=== PATIENT | male | born 1985 | race Asian ===

== ENCOUNTER 2017-09-24 18:22 | Emergency (ER) | payer BC, OTHER ==
[2017-09-24 18:45] VITALS: BP 125/81
--- NOTE | 2017-09-24 19:16 | UC ---
Abdominal Pain Male HPI - HPI Summary HPI Summary: 32 y/o male presents to the urgent care c/o left epigastric abdominal pain for the past 3 days. Pt reports on Wednesday night 09/21/2017 he ate a very spicy food at his friends house and then he woke up w/ the pain. Pain is intermittent w/o ay radiation and sometimes stabbing in character that is alleviated w/ movement at times. Pain is 8/10 now. Pt Took an Ibuprofen on to alleviate pain and it made it worse. Pt denies fever, N/V/D, blood in the stool, urinary symptoms, PATEL, URI. Pt is eating well and drinking fluids. - History of Current Complaint Chief Complaint: UCAbdominalPain Stated Complaint: UPPER ABD PAIN Time Seen by Provider: 09/24/17 19:04 Hx Obtained From: Patient Onset/Duration: Gradual Onset, Lasting Days - 3 days, Still Present Timing: Intermittent Episodes Lasting: Severity Initially: Mild Severity Currently: Moderate Pain Intensity: 8 Pain Scale Used: 0-10 Numeric Location: Epigastric - left epigastric Radiates: No Character: Burning, Tearing Aggravating Factor(s): Food - spicy food, Other - Ibuprofen Alleviating Factor(s): Position Associated Signs And Symptoms: Positive: Negative. Negative: Diaphoresis, Fever , Cough, Chest Pain, Constipation, Blood in Stool, Urinary Symptoms, Decreased Appetite, Vomiting, Diarrhea - Allergies/Home Medications Allergies/Adverse Reactions: Allergies Allergy/AdvReac Type Severity Reaction Status Date / Time No Known Allergies Allergy Verified 09/24/17 18:37 PMH/Surg Hx/FS Hx/Imm Hx Previously Healthy: Yes - Pt denies PMHX - Surgical History Surgical History: None Surgery Procedure, Year, and Place: none - Family History Known Family History: Positive: None - Pt denies FMHX - Social History Occupation: Employed Full-time Lives: With Family Alcohol Use: None Substance Use Type: None Smoking Status (MU): Former Smoker Type: Cigarettes Amount Used/How Often: 7 a day Length of Time of Smoking/Using Tobacco: 12 years Have You Smoked in the Last Year: Yes When Did the Patient Quit Smoking/Using Tobacco: 3 months ago - Immunization History Most Recent Influenza Vaccination: never Most Recent Tetanus Shot: never Most Recent Pneumonia Vaccination: never Review of Systems Constitutional: Negative Skin: Negative Eyes: Negative ENT: Negative Respiratory: Negative Cardiovascular: Negative Gastrointestinal: Abdominal Pain - left epigastric abdominal pain Genitourinary: Negative Motor: Negative Neurovascular: Negative Musculoskeletal: Negative Neurological: Negative Psychological: Negative Is Patient Immunocompromised?: No All Other Systems Reviewed And Are Negative: Yes Physical Exam - Summary Physical Exam Summary: Vital Signs Reviewed: Yes General:Patient is a well developed and nourished male who is sitting comfortable in the examining table. Patient is not in any acute respiratory distress. Eyes: Positive: Conjunctiva Clear - PERRLA, EOMI, fundi grossly normal ENT: Positive: Normal ENT inspection, Hearing grossly normal, Pharynx normal, TMs normal Neck: Positive: Supple, Nontender, No Lymphadenopathy Respiratory: Positive: Chest non-tender, Lungs clear, Normal breath sounds, No respiratory distress Cardiovascular: Positive: RRR,S1 and S2 present, No Murmur, Pulses Normal, Brisk Capillary Refill Abdomen Description: flat with no distention. No surface trauma, scars, incisions. hyperactive bowel sounds present in all four quadrants. point tenderness on deep palaption in the left side of epigastric area. No guarding, or rigidity to palpation. No masses palpated, No organomegaly. Negative Dimas s signs. No periumbilical tenderness. No rebound in the lower quadrants. NT over McBurneys point. Good femoral pulses bilaterally. No hernia noted. No CVAT bilaterally Musculoskeletal: Positive: Strength Intact, ROM Intact, No Edema,FROM in all major joints, no edema, no cyanosis or clubbing. Neuro: Alert and oriented x 3. No acute neurological deficits. Speech is normal. Psychological: WNL Skin: Dry and warm Triage Information Reviewed: Yes Vital Signs: Initial Vital Signs Temp 98 F 09/24/17 18:39 Pulse 92 09/24/17 18:39 Resp 18 09/24/17 18:39 BP 125/81 09/24/17 18:39 Pulse Ox 99 09/24/17 18:39 Abd Pain Male Course/Dx - Course Course Of Treatment: 32 y/o male presents to the urgent care c/o left epigastric abdominal pain for the past 3 days. Pt reports on Wednesday night 2017 he ate a very spicy food at his friends house and then he woke up w/ the pain. Pain is intermittent w/o ay radiation and sometimes stabbing in character that is alleviated w/ movement at times. Pain is 8/10 now. Pt Took an Ibuprofen on to alleviate pain and it made it worse. Pt denies fever, N/V/D, blood in the stool, urinary symptoms, PATEL, URI. Hx obtained. Pt w/ Point tenderness in epigastric area, normal bowel sounds presents in all four quadrants, no distension or guarding on examination. Pt probably w/ gastritis. Pt given Maalox PO at the clinic to alleviate symptoms. Pt observed for 20 min and then he felt better. Pt's Symptoms discussed w/ DR Lozano. She recommended a PPI and f/u w/ PCP for further management. Pt Rx Omeprazole PO and advised to continue w/ Maalox.Avoid NSAIDs and Rx Tylenol PO for pain. Educated on dietary modifications and advised to f/u w/ PCP of GI DR Staples if not improvement of symptoms in 1 week. Also recommended to go immediately to the ER if he developed severe abdominal pain w/ vomiting for further Tx. D/C instruction explained. Pt left the clinic Hemodynamically stable, A&OX3. - Differential Dx/Clinical Impression Differential Diagnosis/HQI/PQRI: Peptic Ulcer Disease, Renal Colic, Urinary Tract Infection, Other - gastritis, GERD Provider Diagnoses: 1- Acute epigastric abdominal pain - Physician Notification/Consults Discussed Patient Care With: Geetha Lozano - DR Lozano agreed w/ Pt's plan of care. Discharge - Discharge Plan Condition: Stable Disposition: HOME Prescriptions: Acetaminophen TAB* [Tylenol TAB*] 650 mg PO Q6H PRN #20 tab PRN Reason: Pain Omeprazole CAP* [Prilosec CAP* 20 MG] 20 mg PO BEDTIME #30 cap. Patient Education Materials: Gastritis (ED), Acute Abdominal Pain (ED) Referrals: Spenser Staples MD [Medical Doctor] - 1 Week Jesse Lomax MD [Primary Care Provider] - 3 Days Additional Instructions: 1- Please take Omeprazole PO as directed to alleviate symptoms. Avoid spicy food , chocolates, citric fruits, tomato sauce, etc. Avoid long periods of time w/o eating. increase fluid and eat soft meals until symptoms improve. 2- Continue taking Maalox OTC q6hrs to alleviate symptoms. 2- If you develops fever or severe abdominal pain, vomiting please go to the ER, for further treatment. Otherwise f/u with your PCP or [employer] Dr Staples in 1 week if not improvement of symptoms for further management
[2017-09-24] MEDS ORDERED: Al Hydrox/Mg Hydrox/Simet LIQ* 30 ML UDC PO ONE (19:25)
== END 2017-09-24 20:10 | disposition home or self-care (01) ==
LOC: UCEAST 18:22
DX: R10.13 Epigastric pain (principal); Z87.891 Personal history of nicotine dependence
CPT/HCPCS: 99212; A9270-GY; G0463